=== PATIENT | male | born 2005 | race Caucasian/White ===

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

== ENCOUNTER 2024-04-16 22:23 | Emergency (ER) | payer OTHER, SELFPAY ==
--- NOTE | ~2024-04-16 | CT_ITS ---
EXAMINATION: CT abdomen pelvis w con DATE: 04/17/2024 01:01 INDICATION: Right lower quadrant pain TECHNIQUE: Computed tomography (CT) of the abdomen and pelvis was performed with 100 cc Omnipaque 350 intravenous contrast. The dose-length product was 239.53 mGy-cm. Automated exposure control and iter ative reconstruction technique were employed. COMPARISON: None. FINDINGS: Lung bases are unremarkable. No significant pleural or pericardial effusion. Heart size nor mal. The liver, spleen, pancreas, adrenal glands and kidneys are unremarkable. Gallbladder is present . No lymphadenopathy. The appendix is not positively visualized. There is no pericecal inflammatory change to suggest appendicitis. No free air or free fluid. No acute osseous abnormality. No significa nt vascular abnormality. No lymphadenopathy. IMPRESSION: 1. No acute abdominal abnormality. Reviewed, dictated and finalized at location B.
[2024-04-16 22:30] VITALS: BP 153/94; PULSE 65; RESP 14; TEMP 36.8; O2SAT 100
[2024-04-17 00:24] VITALS: BP 110/77; PULSE 62; RESP 16; O2SAT 100
[2024-04-17 00:32] LABS: Basophils Percent Auto 0.4 % (0.2-1.2); Eosinophils Absolute Auto 0.1 K/mm3 (0-0.3); Eosinophils Percent Auto 0.9 % (0-4.4); Hematocrit 44.1 % (42.0-52.0); Hemoglobin 15.2 g/dL (14.0-18.0); Immature Granulocyte Absolute 0.02 K/mm3 (0.00-0.031); Immature Granulocyte Percent A 0.3 % (0-0.5); Lymphocytes Absolute Auto 2.14 K/mm3 (0.9-3.2); Lymphocytes Percent Auto 28.6 % (18.3-44.2); Mean Corpuscular HGB Conc 34.5 g/dl (32-36); Mean Corpuscular Hemoglobin 31.4 pg (26-34); Mean Corpuscular Volume 91.1 fl (80-100); Mean Platelet Volume 11.9 fl (7.4-10.4); Monocytes Absolute Auto 0.7 K/mm3 (0.1-0.6); Monocytes Percent Auto 9.3 % (2.6-8.5); Neutrophils Absolute Auto 4.5 K/mm3 (1.3-6.7); Neutrophils Percent Auto 60.5 % (45.5-73.1); Platelet Count Result 218 k/mm3 (150-375); Red Blood Count 4.84 M/mm3 (4.6-6.20); Red Cell Distribution Width 11.9 % (11.5-14.5); White Blood Count 7.5 K/mm3 (4.5-10.0)
[2024-04-17 00:35] LABS: Appearance Urine Clear (Clear); Bacteria Urine None Seen /hpf; Bilirubin Urine Negative (Negative); Blood Urine Negative (Negative); Color Urine Yellow (Yellow); Glucose Urine UA Negative (Negative); Ketones Urine 2+ mg/dL (Negative); Leukocyte Esterase Ur Negative LEU/UL (Negative); Nitrate Urine Negative (Negative); Non Pathogenic Casts 0-2; Protein Urine 1+ mg/dL (Negative); RBC Urine 0-2 /hpf (0-2); Specific Grav Ur 1.035 (1.001-1.035); Squamous Epithelial Cell Urine None Seen /hpf (Few); WBC Urine 0-5 /hpf (0-3); pH Urine 5.5 (5.0-9.0)
[2024-04-17 00:36] LABS: Add Urine Microscopic? YES
[2024-04-17 00:42] LABS: Alanine Aminotransferase 32 U/L (6-50); Alkaline Phosphatase 66 U/L (38-126); Anion Gap 13 mmol/L (4-12); Aspartate Amino Transferase 41 U/L (17-59); Bilirubin,Total 1.1 mg/dL (0.2-1.3); Blood Urea Nitrogen 21 mg/dL (9-20); Calcium 9.5 mg/dL (8.4-10.2); Carbon Dioxide 28 mmol/L (22-30); Chloride 95 mmol/L (98-107); Estimated CRCL calculation 101 ml/min; Estimated Glomerular Filt Rate > 60; Glucose 101 mg/dL (65-110); Lipase 86 U/L (23-300); Potassium 3.6 mmol/L (3.4-5.0); Sodium 136 mmol/L (137-145)
--- NOTE | 2024-04-17 00:45 | ED.ABDPAIN ---
HPI - Abdominal Pain General Chief Complaint: Abdominal Pain Stated Complaint: abd pain Time Seen by Provider: 04/17/24 00:33 Source: patient and family (sister, later father) Mode of arrival: ambulatory Limitations: no limitations History of Present Illness HPI narrative: 19 yo presents with report of mouth sores he noticed on Friday along inner aspect of lower lip. These improved but are still somewhat present; has pictures for comparison. . Friday night he had epigastric and periumbilical + RLQ abdominal pain, worse when laying down. Associated with nausea but no vomiting. No appetite. States the pain is worse when he lets go after pressing on this area. Also pain in bilateral flanks. No sore throat. Pain was 10/10 in severity, now 8/10. Sister steps out and He denies being sexually active, including not giving oral sex. RN is concerned as he states patient has absent bowel sounds. Related Data Home Medications Medication Instructions Recorded Confirmed escitalopram oxalate 5 mg tablet 5 mg PO DAILY 06/27/23 09/11/23 Allergies Allergy/AdvReac Type Severity Reaction Status Date / Time No Known Allergies Allergy Unknown Verified 09/11/23 11:23 [facility] Past Medical History Medical History No pertinent past medical history Exam Const: General: healthy appearing, no acute distress and alert; No diaphoretic or ill appearing Nutritional Appearance: well nourished Orientation/consciousness: patient oriented x3 Limitations: no limitations HENMT: Head: normal to inspection Other: gross auditory acuity intact. Tacky mucous membranes. Pictures from earlier demonstrate multiple small shwllow sores on the inside of the lower lip, whitish; improved at time of exam though lingering. No lesions on lips. Eyes: Conjunctivae: conjunctivae normal Neck: Neck: normal visual inspection and no meningeal signs Resp: Effort & Inspection: normal respiratory effort, not labored, no retractions, not tachypneic and no use of accessory muscles Cardio: Rate: regular rate GI: Inspection: non-distended GI Palp: Yes Soft to palpation, Yes Tenderness to palpation present (GI) (mild), No Guarding due to palpation present (GI), No Rigid due to palpation and Yes Rebound tenderness present (stated by patient though mild/does not grimace with exam) Skin: General skin exam: normal color and no pallor Wounds: no wounds Neuro: General: patient oriented x3, moves all extremities and no meningeal signs Speech: normal speech Extrem: General: normal to inspection Psych: Mental Status: mental status grossly normal Affect: normal affect Attitude: cooperative Course Vital Signs Vital signs: Vital Signs Temperature 98.2 F 04/16/24 22:30 Pulse Rate 65 04/16/24 22:30 Respiratory Rate 14 04/16/24 22:30 Blood Pressure 153/94 H 04/16/24 22:30 Pulse Oximetry 100 04/16/24 22:30 Oxygen Delivery Room Air 04/16/24 22:30 Temperature 98.2 F 04/16/24 22:30 Pulse Rate 67 04/17/24 03:57 Respiratory Rate 16 04/17/24 03:57 Blood Pressure 127/62 04/17/24 03:57 Pulse Oximetry 97 04/17/24 03:57 Oxygen Delivery Room Air 04/16/24 22:30 MDM - Abdominal Pain MDM Narrative Medical decision making narrative: 19 yo presents with complaint of mouth sores on Friday that are resolving but now with abdominal pain and nausea. Reports rebound tenderness. Pain was epigastric and periumbilical/RLQ. In the ED he is afebrile with VS that show hypertension. Mouth sores appear to be canker sores/apthous ulcers. Will give IV fluids, pain medication, and antiemetic. Zee Score RLQ tenderness (No 0, Yes +2): 2 Temp >37.3C (No 0, Yes +1): 0 Rebound tenderness (No 0, Yes +1): 1 Migration of pain to the RLQ (No 0, Yes +1): 1 Anorexia (No 0, Yes +1): 1 Nausea/vomiting (No 0, Yes +1): 1 Leukocytosis >10K (No 0, Yes +2): 0 Leukocyte left shift >75% neutrophils (
[2024-04-17] MEDS: ONDANSETRON INJ 4 MG/2 ML VIAL IV PUSH (01:08)
[2024-04-17] MEDS: SODIUM CHLORIDE 0.9% IV 1,000 ML 999 ML IV CONT (01:08)
[2024-04-17] MEDS: MORPHINE SULFATE (*CRX) 4 MG/ML INJ IV PUSH (01:09)
[2024-04-17 01:17] LABS: Strep Group A RT-PCR NOT DETECTED (Negative)
[2024-04-17 01:32] LABS: Influenza A QL RT-PCR Negative (Negative); Influenza B QL RT-PCR Negative (Negative); SARS-CoV-2 RNA PCR Negative (Negative)
[2024-04-17 01:51] VITALS: BP 138/70; PULSE 76; RESP 18; O2SAT 100
[2024-04-17 03:57] VITALS: BP 127/62; PULSE 67; RESP 16; O2SAT 97
== END 2024-04-17 03:58 | disposition home or self-care (01) ==
PROVIDERS: Emergency Provider Student in an Organized Health Care Education/Training Program; PCP Pediatrics
DX: K12.0 Recurrent oral aphthae (principal); K52.9 Noninfective gastroenteritis and colitis, unspecified; Z20.822 Contact with and (suspected) exposure to COVID-19
CPT/HCPCS: 36415; 74177; 80053; 81001; 83690; 85025; 87636; 87651; 96361; 96374; 96375; 99284; J2270; J2405; J7030; Q9967